=== PATIENT | female | born 1955 | race Caucasian/White ===

== ENCOUNTER 2019-01-28 08:24 | Emergency (ER) | payer OTHER ==
[~2019-01-28] VITALS: Wt 68.1 kg
[~2019-01-28 08:24] MED LIST: ASPI-903 PO; ATOR-2 PO; BENA40TA56 PO; CHOL100062 PO; IBUP-1542 PO; OMEG-135 PO
[2019-01-28] MEDS ORDERED: LORAZEPAM 2 MG INJ IV ONE (09:00)
[2019-01-28] MEDS ORDERED: SOD CHLORIDE 0.9% 100 ML ONE (09:07)
[2019-01-28] MEDS ORDERED: IODIXANOL LOCM 100 ML BTL ONE (09:07)
[2019-01-28] MEDS ORDERED: ATOR40TA68 ORAL (09:07)
[2019-01-28 09:41] VITALS: BP 153/79; PULSE 75; RESP 18
[2019-01-28] MEDS ORDERED: AMLO-218 PO (09:46)
[2019-01-28] MEDS ORDERED: CARI350T PO (09:46)
[2019-01-28] MEDS ORDERED: HYDR25TA6 ORAL (09:46)
[2019-01-28] MEDS ORDERED: DIPH25CA6 PO (09:46)
[2019-01-28] MEDS ORDERED: TRAZ-111 PO (09:46)
[2019-01-28] MEDS ORDERED: ASPI-1046 PO (09:46)
[2019-01-28] MEDS ORDERED: CETI10TA19 ORAL (09:46)
--- NOTE | 2019-01-28 10:16 | ERD ---
ER Documentation Chief Complaint Chief Complaint severe sudden onset headache 20 min, pain l side. dizziness. no n/v HPI 63-year-old female presents to the emergency department with her family complaining of a headache. Patient has a history of an aneurysm status post clipping and was told that she has a residual aneurysm. She also has significant anxiety. Over the last day or so she has had a nonspecific headache diffusely about her head. The headache is not acute in onset and not the worst headache of her life. She has had no focal weakness, numbness or difficulty speaking associated with a headache. The headache is associated with a significant amount of anxiety. Upon arrival, she reports no other neurologic symptoms. ROS All systems reviewed and are negative except as per history of present illness. Medications Home Meds Reported Medications Aspirin* (Aspirin* (EC)) 81 Mg Tablet.dr, 81 MG PO DAILY, TAB 01/28/19 Diphenhydramine Hcl* (Diphenhydramine Hcl*) 25 Mg Capsule, 50 MG PO QHS PRN for ITCHING, CAP 01/28/19 Amlodipine Besylate* (Norvasc*) 10 Mg Tablet, 10 MG PO DAILY, TAB 01/28/19 Trazodone Hcl* (Trazodone Hcl*) 50 Mg Tablet, 50 MG PO QHS, #30 TAB 01/28/19 Carisoprodol* (Soma*) 350 Mg Tablet, 350 MG PO Q8H PRN for MUSCLE SPASMS, TAB 01/28/19 Hydrochlorothiazide* (Hydrochlorothiazide*) 25 Mg Tab, 1 TAB ORAL DAILY 01/28/19 Cetirizine Hcl* (Cetirizine Hcl*) 10 Mg Tablet, 1 TAB ORAL DAILY PRN for ALLERGIC REACTION 01/28/19 Atorvastatin* (Atorvastatin*) 40 Mg Tablet, 1 TAB ORAL QHS 01/28/19 Discontinued Reported Medications Cholecalciferol* (Vitamin D3*) 1,000 Unit Tablet, 1000 UNIT PO DAILY, TAB 08/27/14 Fish Oil* (Fish Oil*) 1,000 Mg Cap, 1000 MG PO DAILY, CAP 08/27/14 Benazepril Hcl* (Benazepril Hcl*) 40 Mg Tablet, 40 MG PO DAILY, TAB 08/27/14 Ibuprofen* (Motrin*) 600 Mg Tab, 600 MG PO Q8H PRN for PAIN, TAB 08/27/14 Aspirin* (Aspirin* Chew) 81 Mg Tab.chew, 81 MG PO DAILY, TAB.CHEW 08/27/14 Atorvastatin* (Atorvastatin*) 80 Mg Tablet, 80 MG PO HS, TAB 08/27/14 Allergies Allergies: Coded Allergies: No Known Allergy (Unverified , 01/28/19) PMhx/Soc Medical and Surgical Hx: pt denies Medical Hx, pt denies Surgical Hx Hx Miscellaneous Medical Probl: Yes Hx Alcohol Use: No Hx Substance Use: No Hx Tobacco Use: No Smoking Status: Never smoker FmHx Noncontributory for chief complaint Physical Exam Vitals Vital Signs Date Temp Pulse Resp B/P (MAP) Pulse Ox O2 O2 Flow FiO2 Time Delivery Rate 01/28/19 98.1 75 18 153/79 98 Room Air 09:41 (103) 01/28/19 98.0 111 22 173/103 99 08:25 (126) Physical Exam GENERAL: The patient is well developed and appropriate for usual state of health in no apparent distress HEENT: Pupils equal, round, and reactive to light. EOMI. There is no scleral icterus. Previous craniotomy is noted NECK: C-spine is soft and supple, there is no meningismus. There is no cervical lymphadenopathy. LUNGS: Clear to auscultation bilaterally. There are no rales, wheezes or rhonchi. HEART: Regular rate and rhythm, no murmurs, clicks, rubs or gallops. ABDOMEN: Soft, non-tender, non-distended. There are bowel sounds in all four quadrants. No rebound or guarding. EXTREMITIES: There is no peripheral cyanosis or edema. No focal swelling or erythema. NEURO: The patient moves all four extremities with 5/5 strength. Cranial nerves II - XII are intact. Normal gait. Alert and oriented SKIN: There is no apparent rash or petechiae. HEME/LYMPHATIC: There is no evidence of excessive bruising or lymphedema. PSYCHIATRIC: Patient is awake, alert, oriented. She is significantly anxious. Result Diagram: 01/28/19 0841 01/28/19 0841 Results 24 hrs Laboratory Tests Test 01/28/19 08:41 White Blood Count 7.0 10^3/ul Red Blood Count 4.84 10^6/ul Hemoglobin 12.8 g/dl Hematocrit 38.9 % Mean Corpuscular Volume 80.4 fl Mean Corpuscular Hemoglobin 26.4 pg Mean Corpuscular Hemoglobin Concent 32.9 g/dl Red Cell Distribution Width 13.7 % Platelet Count 169 10^3/UL Mean Platelet Volume 12.1 fl Immature Granulocytes % 0.300 % Neutrophils % 56.7 % Lymphocytes % 31.0 % Monocytes % 7.7 % Eosinophils % 3.9 % Basophils % 0.4 % Nucleated Red Blood Cells % 0.0 /100WBC Immature Granulocytes # 0.020 10^3/ul Neutrophils # 4.0 10^3/ul Lymphocytes # 2.2 10^3/ul Monocytes # 0.5 10^3/ul Eosinophils # 0.3 10^3/ul Basophils # 0.0 10^3/ul Nucleated Red Blood Cells # 0.0 10^3/ul Prothrombin Time 12.8 Sec Prothrombin Time Ratio 1.0 INR International Normalized Ratio 0.95 Activated Partial Thromboplast Time 29.2 Sec Sodium Level 142 mmol/L Potassium Level 4.3 mmol/L Chloride Level 108 mmol/L Carbon Dioxide Level 24 mmol/L Anion Gap 10 Blood Urea Nitrogen 19 mg/dl Creatinine 0.46 mg/dl Est Glomerular Filtrat Rate mL/min > 60 mL/min Glucose Level 137 mg/dl Hemoglobin A1c 5.8 % Calcium Level 8.9 mg/dl Troponin I < 0.012 ng/ml Triglycerides Level 148 mg/dl Cholesterol Level 204 mg/dl LDL Cholesterol, Calculated 116 mg/dl HDL Cholesterol 58 mg/dl Cholesterol/HDL Ratio 3.5 RATIO Current Medications Medications Dose Sig/Ajith Start Time Status Last (Trade) Ordered Route PRN Stop Time Admin Dose Reason Admin Lorazepam 0.5 mg ONCE ONCE 01/28/19 DC 01/28/19 (Ativan) IV 09:00 01/28/19 09:01 09:01 IV Flush 10 ml STK-MED 01/28/19 DC 01/28/19 (NS 10 ml) ONCE .ROUTE 09:07 01/28/19 09:18 09:08 Sodium 100 ml @ ud STK-MED 01/28/19 DC 01/28/19 Chloride ONCE .ROUTE 09:07 01/28/19 09:18 09:08 Iodixanol 100 ml STK-MED 01/28/19 DC 01/28/19 (Visipaque ONCE .ROUTE 09:07 01/28/19 09:18 Locm) 09:08 Procedures/MDM Patient was taken to a room, seen and evaluated. Comfort measures were initiated. Diagnostic tests were ordered and reviewed. 3 LEAD RHYTHM STRIP: Normal sinus rhythm without ectopy EK lead EKG reviewed by myself: Normal Sinus Rhythm Normal [place] and intervals No ST elevation, depression, or T wave inversion Impression: Normal EKG RADIOLOGY: Reviewed with the radiologist REEVALUATION: 1010: Diagnostic tests were appreciated and discussed with the patient. After the Ativan and treatment of her anxiety, she was significantly improved with no further headache. She remained with no neurologic symptoms. Her blood pressure normalized. MEDICAL DECISION MAKIN-year-old female presents to the emergency department with nonspecific headache symptoms without evidence of acute neurologic dysfunction. Given her history of aneurysm, this was initially concerning for possibility of neurologic concerns versus symptoms from her anxiety. Her CT scan, including angiogram demonstrated no significant change to previous known aneurysms. She had no evidence of stroke. Most of her symptoms seem to be related to her anxiety, and after treatment of her anxiety she seems to be improving significantly. Overall, patient appears to be stable and improved and appropriate for discharge at this time with no other evidence of neurologic issues or other high-risk concerns. Departure Diagnosis: Primary Impression: Anxiety Condition: Stable Patient Instructions: Anxiety Reaction Additional Instructions: Consulte a al mdico para el seguimiento segn lo discutido. Lleve trinity copia de los resultados de al prueba, si corresponde, a esta visita de seguimiento. Consulte a al mdico o regrese aqu si jomar sntomas no mejoran alek se esperaba. En cualquier momento, regrese al departamento de emergencias por cualquier cambio o empeoramiento en jomar sntomas. MIRI JARA Jan 28, 2019 10:16
== END 2019-01-28 10:21 | disposition home or self-care (01) ==
LOC: E/R 08:24
DX: F41.9 Anxiety disorder, unspecified (principal); R07.9 Chest pain, unspecified; Z79.82 Long term (current) use of aspirin
CPT/HCPCS: 36415; 70450; 70496; 71045; 80048; 80061; 83036; 84484; 85025; 85610; 85730; 93005; 96374; J2060; Q9967; Z7502; Z7610

== ENCOUNTER 2019-03-18 07:14 | Emergency (ER) | payer OTHER ==
[~2019-03-18] VITALS: Ht 154.9 cm; Wt 69.5 kg
[~2019-03-18 07:14] MED LIST changes: +AMLO-218 PO; +ASPI-1046 PO; -ASPI-903 PO; -ATOR-2 PO; +ATOR40TA68 ORAL; -BENA40TA56 PO; +CARI350T PO; +CETI10TA19 ORAL; -CHOL100062 PO; +DIPH25CA6 PO; +HYDR25TA6 ORAL; -IBUP-1542 PO; -OMEG-135 PO; +TRAZ-111 PO
[2019-03-18 07:19] VITALS: Ht 154.9 cm; Wt 69.5 kg
[2019-03-18] MEDS ORDERED: ONDANSETRON 4 MG INJ IV STA (07:33)
[2019-03-18] MEDS ORDERED: KETOROLAC 15 MG INJ IV STA (07:33)
[2019-03-18] MEDS ORDERED: SOD CHLORIDE 0.9% 1,000 ML IV STA (07:33)
[2019-03-18] MEDS ORDERED: LORAZEPAM 0.5 MG TAB PO ONE (08:00)
[2019-03-18] MEDS ORDERED: IBUP-1542 PO (08:58)
[2019-03-18] MEDS ORDERED: ONDA4TAB8 PO (09:00)
[2019-03-18] MEDS ORDERED: NAPR-985 PO (09:00)
--- NOTE | 2019-03-18 09:21 | ERD ---
ER Documentation Chief Complaint Chief Complaint c/o severe weakness, started at 0600. right neck pain. hx: brain aneurysm HPI This is a 63-year-old woman with a history of brain aneurysm presenting with generalized weakness and dizziness. She states she had a mild headache as well but that resolved. She has had multiple similar episodes in the past and has these symptoms about once per month. She denies slurred speech, no gait ataxia, no weakness in her arms or legs, no chest pain or shortness of breath. ROS All systems reviewed and are negative except as per history of present illness. Medications Home Meds Active Scripts Naproxen* (Naprosyn*) 500 Mg Tablet, 500 MG PO BID PRN for PAIN AND/OR INFLAMMATION, #30 TAB Prov:WILLIAM SALES MD 03/18/19 Ondansetron Hcl* (Zofran*) 4 Mg Tablet, 4 MG PO Q8H PRN for NAUSEA AND/OR VOMITING, #30 TAB Prov:WILLIAM SALES MD 03/18/19 Reported Medications Ibuprofen* (Motrin*) 600 Mg Tab, 600 MG PO Q8H PRN for PAIN, TAB 03/18/19 Aspirin* (Aspirin* (EC)) 81 Mg Tablet.dr, 81 MG PO DAILY, TAB 01/28/19 Amlodipine Besylate* (Norvasc*) 10 Mg Tablet, 10 MG PO DAILY, TAB 01/28/19 Hydrochlorothiazide* (Hydrochlorothiazide*) 25 Mg Tab, 1 TAB ORAL DAILY 01/28/19 Cetirizine Hcl* (Cetirizine Hcl*) 10 Mg Tablet, 1 TAB ORAL DAILY PRN for ALLERGIC REACTION 01/28/19 Atorvastatin* (Atorvastatin*) 40 Mg Tablet, 1 TAB ORAL QHS 01/28/19 Discontinued Reported Medications Diphenhydramine Hcl* (Diphenhydramine Hcl*) 25 Mg Capsule, 50 MG PO QHS PRN for ITCHING, CAP 01/28/19 Trazodone Hcl* (Trazodone Hcl*) 50 Mg Tablet, 50 MG PO QHS, #30 TAB 01/28/19 Carisoprodol* (Soma*) 350 Mg Tablet, 350 MG PO Q8H PRN for MUSCLE SPASMS, TAB 01/28/19 Allergies Allergies: Coded Allergies: No Known Allergy (Unverified , 01/28/19) PMhx/Soc Hypertension, brain aneurysm History of Surgery: Yes (BRAIN ANEURYSM/CLIPS) Hx Miscellaneous Medical Probl: Yes Hx Alcohol Use: No Hx Substance Use: No Hx Tobacco Use: No Smoking Status: Never smoker FmHx Family History: No diabetes Physical Exam Vitals Vital Signs Date Temp Pulse Resp B/P (MAP) Pulse Ox O2 O2 Flow FiO2 Time Delivery Rate 03/18/19 72 18 123/67 100 Room Air 09:26 (85) 03/18/19 97.1 70 16 130/65 99 07:19 (86) Physical Exam GENERAL: Well-developed, well-nourished, well-hydrated, anxious, afebrile NEURO: Alert and oriented 3, cranial nerves II through XII intact bilaterally, pupils equal round reactive to light, no focal deficits or facial asymmetry, sensation intact distally Strength 5/5 in upper and lower extremities bilaterally CARDIAC: Regular rate and rhythm, no murmurs rubs or gallops LUNGS: Clear bilaterally no wheezing crackles or stridor SKIN: Warm and dry to touch, no abrasions, contusions, or hematomas, no lacerations, no ecchymosis, no target lesions, and without ulcers EXTREMITIES: No clubbing cyanosis or edema, calves are bilaterally symmetrical, no Homans sign, no popliteal cord sign. Distal pulses equal and bilateral PSYCH: Anxious Result Diagram: 03/18/19 0800 03/18/19 0800 Results 24 hrs Laboratory Tests Test 03/18/19 08:00 White Blood Count 7.0 10^3/ul Red Blood Count 4.41 10^6/ul Hemoglobin 11.9 g/dl Hematocrit 35.8 % Mean Corpuscular Volume 81.2 fl Mean Corpuscular Hemoglobin 27.0 pg Mean Corpuscular Hemoglobin Concent 33.2 g/dl Red Cell Distribution Width 13.4 % Platelet Count 170 10^3/UL Mean Platelet Volume 11.4 fl Immature Granulocytes % 0.300 % Neutrophils % 65.9 % Lymphocytes % 21.0 % Monocytes % 8.4 % Eosinophils % 3.8 % Basophils % 0.6 % Nucleated Red Blood Cells % 0.0 /100WBC Immature Granulocytes # 0.020 10^3/ul Neutrophils # 4.6 10^3/ul Lymphocytes # 1.5 10^3/ul Monocytes # 0.6 10^3/ul Eosinophils # 0.3 10^3/ul Basophils # 0.0 10^3/ul Nucleated Red Blood Cells # 0.0 10^3/ul Urine Color STRAW Urine Clarity CLEAR Urine pH 7.0 Urine Specific [place] 1.013 Urine Ketones NEGATIVE mg/dL Urine Nitrite NEGATIVE mg/dL Urine Bilirubin NEGATIVE mg/dL Urine Urobilinogen NEGATIVE mg/dL Urine Leukocyte Esterase NEGATIVE Katherine/ul Urine Hemoglobin NEGATIVE mg/dL Urine Glucose NEGATIVE mg/dL Urine Total Protein NEGATIVE mg/dl Sodium Level 141 mmol/L Potassium Level 3.5 mmol/L Chloride Level 104 mmol/L Carbon Dioxide Level 29 mmol/L Anion Gap 8 Blood Urea Nitrogen 22 mg/dl Creatinine 0.59 mg/dl Est Glomerular Filtrat Rate mL/min > 60 mL/min Glucose Level 123 mg/dl Calcium Level 9.1 mg/dl Current Medications Medications Dose Sig/Ajith Start Time Status Last (Trade) Ordered Route PRN Stop Time Admin Dose Reason Admin Sodium 1,000 ml @ Q1H STAT 03/18/19 DC 03/18/19 Chloride 1,000 mls/hr IV 07:33 08:06 03/18/19 08:32 Ondansetron 4 mg ONCE STAT 03/18/19 DC 03/18/19 HCl (Zofran IV 07:33 08:06 Inj) 03/18/19 07:34 Ketorolac 15 mg ONCE STAT 03/18/19 DC 03/18/19 Tromethamine IV 07:33 08:06 (Toradol) 03/18/19 07:34 Lorazepam 0.5 mg ONCE ONCE 03/18/19 DC 03/18/19 (Ativan) PO 08:00 08:07 03/18/19 08:01 Procedures/MDM IV line was established patient was placed on investigation lieutenant rhythm strip revealed a sinus rhythm at about 80 bpm with upright P and T waves. Patient was afebrile I administered 1 L normal saline IV, Toradol 15 mg IV, Zofran 4 mg IV, lorazepam 0.5 mg p.o. x1 For hypertension patient also received clonidine 0.1 mg p.o. CBC and electrolytes are normal, urinalysis negative for infection CT scan of the brain was negative for acute bleed mass or shift Differential diagnoses considered, included but not limited to acute coronary s yndrome, pulmonary embolism, aortic dissection, abdominal aortic aneurysm, sepsis, stroke, meningitis, encephalitis, pneumonia, appendicitis, cholecystitis, bowel obstruction, pyelonephritis, nephrolithiasis, cystitis, as well as metabolic, hematologic, and electrolyte abnormalities. As well as absc ess, cellulitis, fractures, and dislocations. Patient feels much better at this time, and vital signs are normal, symptoms have improved. I did give strict instructions to return to the ED if symptoms continue or worsen, patient will otherwise follow-up with primary care physician. Patient understood instructions and agreed to plan. Disclaimer: Inadvertent spelling and grammatical errors are likely due to EHR/dictation software use and do not reflect on the overall quality of patient care. Also, please note that the electronic time recorded on this note does not necessarily reflect the actual time of the patient encounter. Departure Diagnosis: Primary Impression: Dizziness Additional Impressions: Acute anxiety Headache Headache type: tension-type Headache chronicity pattern: acute headache Intractability: not intractable Qualified Codes: G44.209 - Tension-type headache, unspecified, not intractable Condition: Good Patient Instructions: Anxiety Reaction, Headache, Tension Referrals: RANJIT MEJIA MD (PCP) WILLIAM SALES MD Mar 18, 2019 09:21
[2019-03-18 09:26] VITALS: BP 123/67; PULSE 72; RESP 18
== END 2019-03-18 09:28 | disposition home or self-care (01) ==
LOC: E/R 07:14
DX: F41.9 Anxiety disorder, unspecified (principal); R42 Dizziness and giddiness; G44.209 Tension-type headache, unspecified, not intractable; R40.2142 Coma scale, eyes open, spontaneous, at arrival to emergency department; R40.2252 Coma scale, best verbal response, oriented, at arrival to emergency department; R40.2362 Coma scale, best motor response, obeys commands, at arrival to emergency department; I10 Essential (primary) hypertension; Z79.82 Long term (current) use of aspirin
CPT/HCPCS: 36415; 70450; 80048; 81003; 85025; 96374; 96375; J1885; J2405; J7030; Z7502; Z7610